=== PATIENT | female | born 1960 | race Caucasian/White ===

== ENCOUNTER 2018-09-16 18:30 | Inpatient (IN) ==
--- NOTE | 2018-09-16 20:03 | Emergency Department Note ---
Disposition Clinical Impression: Pleural effusion, not elsewhere classified, Pulmonary histoplasmosis Congestive heart failure Qualifiers: Heart failure type: unspecified Heart failure chronicity: chronic Qualified Code(s): I50.9 - Heart failure, unspecified COPD (chronic obstructive pulmonary disease) Qualifiers: COPD type: unspecified COPD Qualified Code(s): J44.9 - Chronic obstructive pulmonary disease, unspecified Disposition: Admitted As Inpatient Condition: Good General Adult HPI - General Chief complaint: ED Shortness of Breath/Dyspnea Stated complaint: Lung pain Time Seen by Provider: 09/16/18 18:51 Source: patient Limitations: no limitations Nursing Notes Reviewed: Yes Vital Signs Reviewed: Yes - History of Present Illness HPI Narrative: Patient's a 57-year-old male who presents the emergency department with complaints of a right-sided rib pain. She states that she had a right-sided upper lobectomy with Dr. Gonzalez approximately one month ago. She had a normal follow-up approximately 4 days ago but 1 day afterwards had a coughing fit and felt a "popping" sensation in her right ribs. Since that time she has had severe pain especially when she takes a deep breath and or has a cough. She denies any fevers or chills at home. Pain Scale: 10 - Related Data Home Medications Medication Instructions Recorded Confirmed Fluticasone/Vilanterol [Breo 2 each IH BID 08/01/18 08/16/18 Ellipta 100-25 Mcg INH] Previous Rx's Medication Instructions Recorded Albuterol Sulfate [Albuterol 2 puff IH Q4H PRN #1 inhaler 07/04/18 Inhaler] Cyclobenzaprine [Flexeril] 10 mg PO HS PRN #10 tablet 08/22/18 Allergies Allergy/AdvReac Type Severity Reaction Status Date / Time clarithromycin [From Biaxin] Allergy See Verified 08/16/18 14:40 Comments Penicillins Allergy Nausea,VOMI Verified 08/16/18 14:40 TING acetaminophen [From Percocet] AdvReac NAUSEA, Verified 08/16/18 14:40 VOMITING doxycycline AdvReac NAUSEA, Verified 08/16/18 14:40 VOMITING oxycodone [From Percocet] AdvReac NAUSEA, Verified 08/16/18 14:40 VOMITING propoxyphene AdvReac Nausea Verified 08/16/18 14:40 [From Darvocet-N] Sulfa (Sulfonamide AdvReac Nausea Verified 08/16/18 14:40 Antibiotics) tramadol [From Ultram] AdvReac Fever Verified 08/16/18 14:40 Review of Systems: In addition to that documented in the HPI above, the additional ROS was obtai angel: General: Denies fever. Denies chills. Denies weight loss. Denies behavioral change. Eyes: Denies visual changes. ENT: Denies nasal congestion. Denies sore throat. Denies hearing change. Cardio: Denies chest pain. Denies palpitations. Respiratory: ADMITS cough. ADMITS shortness of breath. Denies wheezing. GI: Denies nausea, vomiting, or diarrhea. Denies hematochezia or melena. Denies abdominal pain. : Denies dysuria, hematuria, or urinary retention MSK: Denies back pain. Denies joint swelling. Neuro: Denies slurred speech. Denies numbness or tingling. Denies focal w eakness. Denies headache. Denies loss of consciousness. Psych: Denies mood changes. All systems ED: reviewed and negative except as stated. Review of Systems: As Per HPI Past Medical History - Past Medical History Medical history: Reports: cancer, CHF, COPD, hypertension, peripheral artery disease, other Surgical history: Reports: cholecystectomy, MAX/BSO, other Psychiatric history: Reports: depression OPERATIONS EXECUTIVE history: Reports: no OPERATIONS EXECUTIVE history, non-contributory - Social History Smoking Status: Current every day smoker Smokeless Tobacco Status: No Alcohol use: Reports: none Drug use: Reports: none Physical Exam General: Conversant. No apparent distress. Follow commands. Appears stated age. Obese. Neck: No JVD. Trachea midline. Neck supple. Eyes: PERRL. No scleral icterus. HENT: Normocephalic and atraumatic. Moist mucus membranes. Cardiovascular: Regular rate and rhythm. Normal S1 and S2. No murmurs appreciated. Normal capillary refill. Extremities well perfused with 2+ distal pulses bilaterally. No edema. Pulmonary: Crackles in bilateral lower lobes. Not in respiratory distress. Speaks in full sentences. Abdomen: Soft, nondistended, and tontender. No bruits or masses. No guarding. Neuro: Alert and oriented x3. No slurred speech. No focal deficits noted. Skin: No rashes noted on visualized skin. Overlying the right posterior back, overlying the patient's lobectomy scar there is significant area of swelling with tenderness to even light touch. This appears to increase in size during respirations. Musculoskeletal: No bony abnormalities visualized. Moves all extremities. Psych: Normal mood. Pleasant. Makes appropriate eye contact. - General Limitations: no limitations General appearance: alert, in no apparent distress Course - Reevaluation(s) Reevaluation #1: CT image reviewed showing communication of pleural cavity with soft tissue. CT surgery paged. Time: 21:17 - Consultations Consultation #1: Spoke with Dr. Gonzalez, cardiothoracic surgeon who performed the patient's surgery who requests admission to the hospitalist and they will consult and see the patient in the morning. No requirement as far as antibiotics. Time: 21:22 Vital Signs Temperature 98.0 F 09/16/18 18:37 Pulse Rate 93 09/16/18 18:37 Respiratory Rate 16 09/16/18 18:37 Blood Pressure 117/89 09/16/18 18:37 O2 Sat by Pulse Oximetry 94 09/16/18 18:37 Temperature 98.0 F 09/16/18 18:37 Pulse Rate 93 09/16/18 18:37 Respiratory Rate 16 09/16/18 18:37 Blood Pressure 117/89 09/16/18 18:37 O2 Sat by Pulse Oximetry 94 09/16/18 18:37 Oxygen Delivery Oxygen Delivery Room Air Medical Decision Making - [facility] Narrative Medical decision making narrative: Patient's a 57-year-old female who presents with shortness breath and increased swelling in the posterior side of her right back after fall. The patient is approximately one month out from a right upper lobe lobectomy with Dr. Gonzalez. Given the patient's ongoing symptoms did obtain 2 view chest x-ray which revealed significant right-sided pleural effusion but given the significant swelling under the patient's incision site did obtain CT chest. This shows evidence of significant effusion which appears to extend from the right pleural cavity into the right subcutaneous area underlying her incision. Did discuss the case with Dr. Gonzalez who performed her surgery who recommends admission to hospitalist. She is afebrile and has no significant elevation in her white count or anemia and he has no recommendations in terms of antiobitics. He states he will consult onto the case and see the patient in the morning and likely will require drainage tube. Discussed case with on-call hospitalist Dr. Dempsey who agrees with plan for admission and accepts the patient to the inpatient service. Patient agrees with and understands course of treatment plan including plan for admission. All questions answered. - Medical Records Medical records reviewed: Yes I reviewed the patient's medical records. - Lab Data Result diagrams: 09/16/18 20:42 09/16/18 20:42 Lab Results 09/16/18 09/16/18 Range/Units 20:42 20:42 WBC 15.0 H (4.3-11.1) K/mcL RBC 4.24 (3.82-4.97) M/mcL Hgb 12.1 (11.5-15.4) g/dL Hct 38.2 (35.3-44.9) % MCV 90.1 (83.0-100.0) fL MCH 28.5 (28.0-33.3) pg MCHC 31.7 (31.6-35.5) g/dL RDW 13.9 (11.5-14.5) % Plt Count 362 (140-400) K/mcL MPV 9.6 (9.4-12.4) fL Immature Gran % 0.6 (0-4) % Seg Neutrophils % 50.7 % Lymphocytes % 35.5 % Monocytes % 7.5 % Eosinophils % 5.3 % Basophils % 0.4 % Neutrophils # 7.6 (1.6-8.9) K/mcL Lymphocytes # 5.3 H (0.6-4.6) K/mcL Monocytes # 1.1 (0.0-1.3) K/mcL Eosinophils # 0.8 H (0.0-0.6) K/mcL Basophils # 0.1 (0.0-0.2) K/mcL Sodium 138 (136-145) mEq/L Potassium 3.5 (3.5-5.1) mEq/L Chloride 105 (98-107) mEq/L Carbon Dioxide 29 (23-29) mEq/L BUN 9 (6-20) mg/dL Creatinine 0.75 (0.60-1.20) mg/dL Est GFR ( Amer) > 60 (> 60) Est GFR (Non-Af Amer) > 60 (> 60) BUN/Creatinine Ratio 12 (6-26) Glucose 96 (70-105) mg/dL Calculated Osmolality 285 (280-300) Calcium 9.1 (8.6-10.3) mg/dL - Radiology Data Radiology results reviewed: Yes I reviewed the patient's radiology results. Chest X-Ray 09/16/18 19:16 IMPRESSION: Right lung base opacity is nonspecific and may represent pleural fluid and atelectasis with underlying pneumonia not excluded. D/ / 09/16/2018 19:44:56 David Garza MD / walter Interpreting Provider: David Garza MD Chest CT 09/16/18 19:53 IMPRESSION: Large collection along the posterolateral aspect of the chest is nonspecific. On coronal imaging there is suggestion that this is contiguous with the pleural cavity. Moderate right pleural effusion. Right lung opacities may represent a combination of postsurgical change, atelectasis, with residual malignancy not excluded. Multiple tiny nodular opacities within the left upper lobe are nonspecific and may be infectious versus inflammatory. Malignancy is felt to be less likely but not excluded. D/ / 09/16/2018 20:37:38 David Garza MD / walter Interpreting Provider: David Garza MD - EKG Data EKG #1 EKG attestation: Yes I reviewed and interpreted this EKG. EKG shows normal: sinus rhythm Rate: normal Rhythm: NSR When compared to previous EKG there are: no significant changes (06/20/18) Interpretation: no acute changes Attestation Statement - Attestation Attestation: DR Roberson note: Pt seen in conjunction w/ Resident Dr Ledezma; Please see her charting for complete documentation. I agree with patient's Assessment and spent [id number] time with the patient and I agree with the patient's treatment and disposition. Patient with 3 days of right axillary rib pain at her incision site from her prior surgery with deep breath and movement. Patient is not hypoxic or tachypneic. Effusion with communication. Noted is patient had surgery at this site. She is stable on arrival and on admission. We discussed the case with her cardiovascular surgeon. Stable at time of admission. Imaging results including CT scan of been reviewed.
[2018-09-16 21:07] LABS: Basophils # 0.1 K/mcL (0.0-0.2); Basophils % 0.4 %; Eosinophils # 0.8 K/mcL (0.0-0.6); Eosinophils % 5.3 %; Hematocrit 38.2 % (35.3-44.9); Hemoglobin 12.1 g/dL (11.5-15.4); Immature Granulocytes % 0.6 % (0-4); Lymphocytes # 5.3 K/mcL (0.6-4.6); Lymphocytes % 35.5 %; Mean Corpuscular HGB Conc 31.7 g/dL (31.6-35.5); Mean Corpuscular Hemoglobin 28.5 pg (28.0-33.3); Mean Corpuscular Volume 90.1 fL (83.0-100.0); Mean Platelet Volume 9.6 fL (9.4-12.4); Monocytes # 1.1 K/mcL (0.0-1.3); Monocytes % 7.5 %; Neutrophils # 7.6 K/mcL (1.6-8.9); Platelet Count 362 K/mcL (140-400); Red Blood Count 4.24 M/mcL (3.82-4.97); Red Cell Distribution Width 13.9 % (11.5-14.5); Segmented Neutrophils % 50.7 %
[2018-09-16 21:26] LABS: BUN/Creatinine Ratio 12 (6-26); Blood Urea Nitrogen 9 mg/dL (6-20); Calcium 9.1 mg/dL (8.6-10.3); Carbon Dioxide 29 mEq/L (23-29); Chloride 105 mEq/L (98-107); Glucose 96 mg/dL (70-105); Osmolality,Calculated 285 (280-300); Potassium 3.5 mEq/L (3.5-5.1); Sodium 138 mEq/L (136-145); eGFR For Non-African Americans > 60 (> 60)
[2018-09-16] MEDS ORDERED: *HR* HYDROcodone/Acet 10/325 mg TABLET PO ONE (22:24)
[2018-09-16] MEDS ORDERED: Ondansetron ODT 4 MG TAB.RAPDIS SL ONE (22:38)
[2018-09-17] MEDS ORDERED: Ketorolac 15 MG/ML VIAL IVP PRN (03:43)
[2018-09-17] MEDS ORDERED: Naloxone 0.4 MG/ML INJ IVP PRN (03:43)
--- NOTE | 2018-09-17 04:15 | Internal Med History&Physical ---
Date of Encounter: 09/17/18 Time of Encounter: 04:15 Internal Medicine - H&P: HPI Chief complaint: Chest Pain/Cough History of present illness: Ms. Menjivar is a 57 year old female with a past medical history of COPD, hypertension, CHF, and pulmonary histoplasmosis status post lobectomy on 08/16/2018 who presents to the ED with complaints of right-sided rib pain. She states that she had a right-sided upper lobectomy with Dr. Gonzalez approximately one month ago. She had a normal follow-up approximately 4 days ago but 1 day afterwards had a coughing fit and felt a "popping" sensation in her right ribs. Since that time she has had severe pain especially when she takes a deep breath and or has a cough. She denies any fevers or chills at home. On arrival patient was afebrile, hemodynamically stable satting at 96% on room air. Labs are notable for a leukocytosis which appears to be chronic. A CT scan of the chest was performed which showed a large collection along the posterior lateral aspect of the chest. Case was discussed with Dr. Saeed who performed her surgery and will see the patient in the morning and likely will require drainage tube. Past Med Surg Social Fam HX - Past Medical History Medical history: cancer, CHF, COPD, hypertension, peripheral artery disease, other Additional medical history: cervical cancer Psychiatric history: depression - Past Surgical History Surgical History: cholecystectomy, MAX/BSO, other Additional surgical history: rhinoplasty. R knee replacement - Social History Smoking Status: Current every day smoker Smokeless Tobacco Status: No Alcohol use: none Drug use: none Internal Medicine - H&P: Meds Albuterol Sulfate [Albuterol Inhaler] 2 puff IH Q4H PRN #1 inhaler 07/04/18 [Rx] Fluticasone/Vilanterol [Breo Ellipta 100-25 Mcg INH] 2 each IH BID 08/01/18 [History] Cyclobenzaprine [Flexeril] 10 mg PO HS PRN #10 tablet 08/22/18 [Rx] Albuterol Inhaler IH TID 09/17/18 [History] Benadryl 10 mg HS 09/17/18 [History] PredniSONE 25 mg PO DAILY 09/17/18 [History] Tessalon 10 mg PO TID 09/17/18 [History] Allergy/AdvReac Type Severity Reaction Status Date / Time clarithromycin [From Biaxin] Allergy See Verified 08/16/18 14:40 Comments Penicillins Allergy Nausea,VOMI Verified 08/16/18 14:40 TING acetaminophen [From Percocet] AdvReac NAUSEA, Verified 08/16/18 14:40 VOMITING doxycycline AdvReac NAUSEA, Verified 08/16/18 14:40 VOMITING oxycodone [From Percocet] AdvReac NAUSEA, Verified 08/16/18 14:40 VOMITING propoxyphene AdvReac Nausea Verified 08/16/18 14:40 [From Darvocet-N] Sulfa (Sulfonamide AdvReac Nausea Verified 08/16/18 14:40 Antibiotics) tramadol [From Ultram] AdvReac Fever Verified 08/16/18 14:40 All Systems PM: A 10-system review of systems was performed and is negative for pertinent findings except as documented above in the HPI. - Constitutional Constitutional: no chills, no fever(s), no night sweats - EENT Eyes: no change in vision, no discharge, no pain, no photophobia Ears: no ear discharge, no ear pain, no tinnitus Nose, mouth and throat: no dysphagia, no nasal discharge, no neck pain, no sore throat - Cardiovascular Cardiovascular ROS IM: no chest pain, no diaphoresis, no dyspnea, no lightheadedness, no palpitations, no syncope - Respiratory Respiratory: no cough, no dyspnea, no wheezing, no excessive phlegm production - Gastrointestinal Gastrointestinal: no abdominal pain, no diarrhea, no hematemesis, no hematochezia, no melena, no nausea, no vomiting - Genitourinary Genitourinary: no change in urinary stream, no dysuria, no flank pain, no hematuria - Musculoskeletal Musculoskeletal ROS IM: no numbness, no tingling - Integumentary Integumentary IM: no rash, no unusual bruising - Neurological Neurological ROS: no confusion, no convulsions, no focal weakness, no numbness, no tingling, no tremor(s) - Hematologic/Lymphatic Hematologic/Lymphatic: no easy bruising - Constitutional Vitals: Temp Pulse Resp BP Pulse Ox 98.1 F 82 16 108/61 91 09/17/18 01:16 09/17/18 01:16 09/17/18 01:16 09/17/18 01:16 09/17/18 01:16 Exam: General: Alert and oriented x 3 Skin:Normal color, no rash, no lesions. HEENT:EOM, pupils equal, round and reactive. Cardiovascular:Normal S1 & S2, no rubs, murmurs or gallops. No JVD. Pulse regular. Lungs: Diffuse expiratory wheezing noted on lung examination. Abdomen:Soft, non-tender, no rigidity. Extremities:No deformity, no edema or tenderness, no joint swelling or clubbing. Neurological:Normal cognition and motor skills. Pulses:Carotid and radial pulses normal +2. Rest of the physical exam is non contributory Internal Med - H&P Results - Labs CBC & Chem 7: 09/17/18 05:24 09/17/18 05:24 Labs: Short CBC 09/16/18 Range/Units 20:42 WBC 15.0 H (4.3-11.1) K/mcL Hgb 12.1 (11.5-15.4) g/dL Hct 38.2 (35.3-44.9) % Plt Count 362 (140-400) K/mcL Neutrophils # 7.6 (1.6-8.9) K/mcL BMP 09/16/18 20:42 Sodium 138 Potassium 3.5 Chloride 105 Carbon Dioxide 29 BUN 9 Creatinine 0.75 Glucose 96 Calcium 9.1 - Impressions ITS Impressions Chest X-Ray 09/16/18 19:16 IMPRESSION: Right lung base opacity is nonspecific and may represent pleural fluid and atelectasis with underlying pneumonia not excluded. D/ / 09/16/2018 19:44:56 David Garza MD / walter Interpreting Provider: David Garza MD Chest CT 09/16/18 19:53 IMPRESSION: Large collection along the posterolateral aspect of the chest is nonspecific. On coronal imaging there is suggestion that this is contiguous with the pleural cavity. Moderate right pleural effusion. Right lung opacities may represent a combination of postsurgical change, atelectasis, with residual malignancy not excluded. Multiple tiny nodular opacities within the left upper lobe are nonspecific and may be infectious versus inflammatory. Malignancy is felt to be less likely but not excluded. D/ / 09/16/2018 20:37:38 David Garza MD / walter Interpreting Provider: David Garza MD - Assessment and Plan (1) Pleural effusion, not elsewhere classified Current Visit: Yes Status: Acute Assessment and plan: CT scan of the chest shows a large collection along the posterior lateral aspect no chest along with moderate right pleural effusion occurring in the setting of previous wedge resection in July. Low suspicion for infectious etiology. Patient does not have fever and her white count appears to be chronic. Case was discussed with Dr. Saeed for plans of placement of a chest tube drain -We will keep patient NPO -Cardiothoracic on board. (2) Congestive heart failure Current Visit: Yes Status: Acute Assessment and plan: No evidence of an acute exacerbation. Continue home medication management. Qualifiers: Heart failure type: unspecified Heart failure chronicity: chronic Qualified Code(s): I50.9 - Heart failure, unspecified (3) COPD (chronic obstructive pulmonary disease) Current Visit: Yes Status: Chronic Assessment and plan: Patient has mild expiratory wheezing. She states she always wheezes. Patient otherwise saturating in the mid 90s on room air. Low Suspicion for an acute exacerbation. -Continue home inhalers - Qualifiers: COPD type: unspecified COPD Qualified Code(s): J44.9 - Chronic obstructive pulmonary disease, unspecified (4) DVT prophylaxis Current Visit: Yes Status: Acute Assessment and plan: Pneumatic compression devices - Time Spent With Patient Total time spent is greater than 50% in coordination of care (as documented) at patient's floor/unit and/or counseling patient:
[2018-09-17] MEDS: 0.9 % Sodium Chloride 1,000 ML IVC SCH ×2 (04:20→17:42)
[2018-09-17 05:43] LABS: Basophils # 0.1 K/mcL (0.0-0.2); Basophils % 0.5 %; Eosinophils # 0.8 K/mcL (0.0-0.6); Eosinophils % 6.2 %; Hematocrit 39.2 % (35.3-44.9); Hemoglobin 12.2 g/dL (11.5-15.4); Immature Granulocytes % 0.5 % (0-4); Lymphocytes # 5.3 K/mcL (0.6-4.6); Lymphocytes % 39.2 %; Mean Corpuscular HGB Conc 31.1 g/dL (31.6-35.5); Mean Corpuscular Volume 90.1 fL (83.0-100.0); Mean Platelet Volume 9.5 fL (9.4-12.4); Monocytes # 1.2 K/mcL (0.0-1.3); Monocytes % 8.8 %; Platelet Count 344 K/mcL (140-400); Red Blood Count 4.35 M/mcL (3.82-4.97); Red Cell Distribution Width 13.9 % (11.5-14.5); Segmented Neutrophils % 44.8 %
[2018-09-17 05:50] LABS: INR 1.2; Prothrombin Time 13.6 Seconds (9.4-12.1)
[2018-09-17 05:53] LABS: Activated Partial Thrombo Time 31.4 Seconds (26.0-36.0)
[2018-09-17 06:04] LABS: Alanine Aminotransferase 17 Units/L (7-52); Albumin 3.6 g/dL (3.5-5.7); Albumin/Globulin Ratio 1.2 (1.1-2.2); Alkaline Phosphatase 98 Units/L (34-104); Aspartate Amino Transferase 15 Units/L (13-39); BUN/Creatinine Ratio 13 (6-26); Bilirubin,Total 0.5 mg/dL (0.3-1.0); Blood Urea Nitrogen 9 mg/dL (6-20); Carbon Dioxide 28 mEq/L (23-29); Chloride 108 mEq/L (98-107); Globulin 3.1 g/dL (2.4-3.5); Glucose 96 mg/dL (70-105); Osmolality,Calculated 283 (280-300); Potassium 3.6 mEq/L (3.5-5.1); Sodium 137 mEq/L (136-145); Total Protein 6.7 g/dL (6.4-8.9); eGFR For Non-African Americans > 60 (> 60)
[2018-09-17] MEDS: predniSONE 10 MG TABLET PO SCH (08:40)
[2018-09-17] MEDS ORDERED: TESSALON PO SCH (09:00)
[2018-09-17] MEDS ORDERED: Ipratropium/Albuterol Neb 3 ML IH PRN (10:08)
--- NOTE | 2018-09-17 10:29 | Internal Med Progress Note ---
<Roel Velez - Last Filed: 09/17/18 14:41> Hospitalist Progress Note - Encounter Date of Encounter: 09/17/18 Time of Encounter: 08:30 - Subjective Interval History: Patient 57 yo female presented with right rib pain. 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 Patient Denies fevers, chills, and weight loss. She denies chest pain, palpitations, or extremity edema. She denies SOB, wheezing, but admits to a cough that produces green/yellow sputum. Patient denies abdominal distention, diarrhea, hematochezia, but admits to constipation. She also denies dysuria, increase in frequency, and gross hematuria. - Exam Vitals: Temp Pulse Resp BP Pulse Ox 98.4 F 85 20 100/58 90 09/17/18 06:55 09/17/18 06:55 09/17/18 06:55 09/17/18 06:55 09/17/18 06:55 Exam: GEN: WDWN, Cardiac: RRR, no murmur, no rub Lungs: + diffuse inspiratory wheezing, no rhonci, no rales GI: BS X4 MSK: Right 6 rib tender, abnormal wall motion. I & O 09/16/18 18:30 thru 09/17/18 12:16 Intake Total 0 Output Total 0 Balance 0 Weight 117 kg Intake: Oral 0 Output: Urine 0 Other: Meal npo Percent of Meal Consumed 0% Blood Glucose* 110 Chest x-ray: Righ lung base opacity, Plural fluid, possible atalectasis, possible underlying pneumonia Chest CT: Right pleural effusion, Right sided atelectasis, Left nodular opacities maybe infectious vs inflammatory, possible Malignacy but unlikely - Assessment and Plan (1) Rib pain on right side Current Visit: Yes Status: Acute Assessment and Plan: Patient complains of rib pain during forced exhalation and when coughing Start Tessalon 100 mg PO TID PRN for cough suppression, Start [place] 5-325 mg 1 tab PO Q6HR PRN Likely rib sublixation due to chronic cough secondary to pleural effusion, COPD. Patient had right upper lobectomy 1 month ago (2) Pleural effusion, not elsewhere classified Current Visit: Yes Status: Acute Assessment and Plan: Chest CT: Right pleural effusion, Large right side volume collection. Infectious etiology is not likely. IR to perform right thoracentesis. Continue to monitor for signs of infectious etiology (3) COPD (chronic obstructive pulmonary disease) Current Visit: Yes Status: Chronic Assessment and Plan: Patient has diffuse inspiratory wheezing, diminished breath sounds. O2 staturation at 90% room air. Low suspicion for exacerbation Continue home inhalers, start tessalon 100 mg PO TID PRN (4) Congestive heart failure Current Visit: Yes Status: Acute Assessment and Plan: No evidence of acute exacerbation Continue home medications DC tordol (5) HTN (hypertension) Current Visit: No Status: Chronic Assessment and Plan: Patient has a diagnosis of HTN, Does not currently take medication for HTN Vitals are stable - Time Spent with Patient Total time spent is greater than 50% in coordination of care (as documented) at patient's floor/unit and/or counseling patient: Internal Medicine: Result - Labs CBC & Chem 7: 09/17/18 05:24 09/17/18 05:24 Labs: Short CBC 09/16/18 09/17/18 Range/Units 20:42 05:24 WBC 15.0 H 13.5 H (4.3-11.1) K/mcL Hgb 12.1 12.2 (11.5-15.4) g/dL Hct 38.2 39.2 (35.3-44.9) % Plt Count 362 344 (140-400) K/mcL Neutrophils # 7.6 6.0 (1.6-8.9) K/mcL BMP 09/16/18 09/17/18 20:42 05:24 Sodium 138 137 Potassium 3.5 3.6 Chloride 105 108 H Carbon Dioxide 29 28 BUN 9 9 Creatinine 0.75 0.69 Glucose 96 96 Calcium 9.1 9.0 Liver Function 09/17/18 Range/Units 05:24 Total Bilirubin 0.5 (0.3-1.0) mg/dL AST 15 (13-39) Units/L ALT 17 (7-52) Units/L Alkaline Phosphatase 98 (34-104) Units/L Albumin 3.6 (3.5-5.7) g/dL - ABG Interpretation ABG results: PT/INR, D-dimer PT 13.6 Seconds (9.4-12.1) H 09/17/18 05:24 - Impressions Impressions Chest X-Ray 09/16/18 19:16 IMPRESSION: Right lung base opacity is nonspecific and may represent pleural fluid and atelectasis with underlying pneumonia not excluded. D/ / 09/16/2018 19:44:56 David Garza MD / walter Interpreting Provider: David Garza MD Chest CT 09/16/18 19:53 IMPRESSION: Large collection along the posterolateral aspect of the chest is nonspecific. On coronal imaging there is suggestion that this is contiguous with the pleural cavity. Moderate right pleural effusion. Right lung opacities may represent a combination of postsurgical change, atelectasis, with residual malignancy not excluded. Multiple tiny nodular opacities within the left upper lobe are nonspecific and may be infectious versus inflammatory. Malignancy is felt to be less likely but not excluded. D/ / 09/16/2018 20:37:38 David Garza MD / walter Interpreting Provider: David Garza MD Consult Discharge Plan - Plan Referrals: Paco Lopez DO [Primary Care Provider] - <Fernando Hoffmann - Last Filed: 09/17/18 19:07> Hospitalist Progress Note - Encounter Date of Encounter: 09/17/18 - Exam Vitals: Temp Pulse Resp BP Pulse Ox 98.6 F 89 12 103/56 95 09/17/18 12:16 09/17/18 13:46 09/17/18 13:46 09/17/18 13:46 09/17/18 13:46 - Assessment and Plan (1) COPD (chronic obstructive pulmonary disease) Current Visit: Yes Status: Chronic (2) Pleural effusion, not elsewhere classified Current Visit: Yes Status: Acute (3) Congestive heart failure Current Visit: Yes Status: Acute (4) DVT prophylaxis Current Visit: Yes Status: Acute - Time Spent with Patient Total time spent is greater than 50% in coordination of care (as documented) at patient's floor/unit and/or counseling patient: Internal Medicine: Result - Labs CBC & Chem 7: 09/17/18 05:24 09/17/18 05:24 Labs: Short CBC 09/16/18 09/17/18 Range/Units 20:42 05:24 WBC 15.0 H 13.5 H (4.3-11.1) K/mcL Hgb 12.1 12.2 (11.5-15.4) g/dL Hct 38.2 39.2 (35.3-44.9) % Plt Count 362 344 (140-400) K/mcL Neutrophils # 7.6 6.0 (1.6-8.9) K/mcL BMP 09/16/18 09/17/18 20:42 05:24 Sodium 138 137 Potassium 3.5 3.6 Chloride 105 108 H Carbon Dioxide 29 28 BUN 9 9 Creatinine 0.75 0.69 Glucose 96 96 Calcium 9.1 9.0 Liver Function 09/17/18 Range/Units 05:24 Total Bilirubin 0.5 (0.3-1.0) mg/dL AST 15 (13-39) Units/L ALT 17 (7-52) Units/L Alkaline Phosphatase 98 (34-104) Units/L Albumin 3.6 (3.5-5.7) g/dL - ABG Interpretation ABG results: PT/INR, D-dimer PT 13.6 Seconds (9.4-12.1) H 09/17/18 05:24 - Impressions Impressions Chest X-Ray 09/16/18 19:16 IMPRESSION: Right lung base opacity is nonspecific and may represent pleural fluid and atelectasis with underlying pneumonia not excluded. D/ / 09/16/2018 19:44:56 David Garza MD / walter Interpreting Provider: David Garza MD Chest CT 09/16/18 19:53 IMPRESSION: Large collection along the posterolateral aspect of the chest is nonspecific. On coronal imaging there is suggestion that this is contiguous with the pleural cavity. Moderate right pleural effusion. Right lung opacities may represent a combination of postsurgical change, atelectasis, with residual malignancy not excluded. Multiple tiny nodular opacities within the left upper lobe are nonspecific and may be infectious versus inflammatory. Malignancy is felt to be less likely but not excluded. D/ / 09/16/2018 20:37:38 David Garza MD / walter Interpreting Provider: David Garza MD Thoracentesis 09/17/18 00:00 IMPRESSION: 1. CT guided right chest tube placement as discussed above. D/ / Jaron Leon MD / Jaron Leon MD Interpreting Provider: Jaron Leon MD - Attending Attestation I examined this patient and my medical decision-making was reviewed with the Medical Student. I agree with the documented findings, disposition and treatment plan as described except to the extent set forth below. Patient having persisting right sided pain. She denies fevers/chills, SOB. On physical exam she does have significant wheezing. She refuses steroid therapy. She refuses some medications this morning. VS: reviewed, labs: reviewed. Patient will have CT surgery to evaluate patient. Continue supportive care. <Roel Velez - Last Filed: 09/17/18 14:41> (3) COPD (chronic obstructive pulmonary disease) Qualifiers: COPD type: unspecified COPD Qualified Code(s): J44.9 - Chronic obstructive pulmonary disease, unspecified (4) Congestive heart failure Qualifiers: Heart failure type: unspecified Heart failure chronicity: chronic Qualified Code(s): I50.9 - Heart failure, unspecified <Fernando Hoffmann - Last Filed: 09/17/18 19:07> (1) COPD (chronic obstructive pulmonary disease) Qualifiers: COPD type: unspecified COPD Qualified Code(s): J44.9 - Chronic obstructive pulmonary disease, unspecified (3) Congestive heart failure Qualifiers: Heart failure type: unspecified Heart failure chronicity: chronic Qualified Code(s): I50.9 - Heart failure, unspecified
[2018-09-17] MEDS ORDERED: Ondansetron 4 MG/2 ML VIAL IVP PRN (11:37)
[2018-09-17] MEDS: *HR* HYDROcodone/Acet 5/325 mg TABLET PO PRN ×3 (11:44→18:13)
[2018-09-17] MEDS ORDERED: *HR* Midazolam HCl 2 MG/2 ML VIAL IVP ONE (12:50)
[2018-09-17] MEDS ORDERED: *HR* FentaNYL (PF) 100 MCG/2 ML VIAL IVP ONE (12:51)
--- NOTE | 2018-09-17 13:53 | Pre-Sedation Evaluation ---
Pre-sedation evaluation - Pre-sedation checklist Date of procedure: 09/17/18 Procedure: Right chest tube placement Recent Vitals: Last Vital Signs Temp 98.6 F 09/17/18 12:16 Pulse 89 09/17/18 13:46 Resp 12 09/17/18 13:46 BP 103/56 09/17/18 13:46 Pulse Ox 95 09/17/18 13:46 Dietary Status: NPO after Midnight ASA Classification *see protocol: CLASS III-Severe systemic disease Plan of Care: Pt appropriate candidate for procedure/moderate/conscious sedation, Risks/benefits of procedure/sedation discussed w/ patient/family
--- NOTE | 2018-09-17 13:54 | IR Procedure Note ---
Date of procedure: 09/17/18 Consent Obtained: Written consent Timeout: Correct patient and procedure verified, Correct site verified, Time out performed Local anesthetic: Lidocaine 1% Indications: Right pleural effusion Procedure Performed: Right chest tube placement Was there an help desk assistant present: No Results/Findings: CT guided 10F right chest tube placement Estimated blood loss (cc): 0 Complications: None; Tolerated procedure well Post Procedure Treatment Plan: Monitor on floor Specimen: To path
[2018-09-17] MEDS: Benzonatate 100 MG CAPSULE PO PRN (18:12)
[2018-09-17] MEDS: Ondansetron 4 MG/2 ML VIAL IVP PRN (18:14)
--- NOTE | 2018-09-18 06:05 | Event Note ---
Date of Encounter: 09/18/18 Time of Encounter: 04:46 Alerted by pts. nurse ZARINA Ngo that the pt. was admitted for pleural effusion and had chest tube placed by IR to right back. Pt. was complaining of 10/10 pain stating that her right chest did not feel right. Nurse reports diminished breath sounds. Stat 1V CXR ordered which showed decreased volume right pleural effusion after percutaneous pleural pigtail catheter placement. No pneumothorax/hydropneumothorax. Nurse instructed to continue monitoring pt. closely and notify me immediately of any adverse changes.
[2018-09-18] MEDS: *HR* HYDROcodone/Acet 5/325 mg TABLET PO PRN (08:37)
[2018-09-18] MEDS: predniSONE 10 MG TABLET PO SCH (08:38)
[2018-09-18] MEDS: Ondansetron 4 MG/2 ML VIAL IVP PRN ×2 (08:56→21:06)
--- NOTE | 2018-09-18 10:20 | Internal Med Progress Note ---
<AgustinRoel - Last Filed: 09/18/18 15:33> Hospitalist Progress Note - Encounter Date of Encounter: 09/18/18 Time of Encounter: 08:20 - Subjective Interval History: Patient, 57 yo female presented with right rib pain, SOB, cough, and dyspnea. Patient had a right upper lobectomy 1 month ago. Imaging showed a collection of pleural fluid. Yesterday the patient had a chest tube placed for fluid drainage and analysis. Patient denied any fever or chills, she denied changes in vision and vertigo but admitted to a "migraine" headache that she had yesterday. Patient states she has the urge to cough but is able to suppress it. When she does cough it produces a green sputum. She admits to wheezing and pleuritic pain. She admits to palpitation, orthopnea, but denies edema, claudication, or chest pain. She states she has nausea but denies vomiting, constipation, or rectal bleeding. She states that she has pain when urinating but denies hematuria, or an increase in frequency/urgency. Patient admits to back pain and swelling in her back. The nurse was concerned for oral candidiasis. - Exam Vitals: Temp Pulse Resp BP Pulse Ox 98.4 F 83 18 122/79 91 09/18/18 06:50 09/18/18 06:50 09/18/18 06:50 09/18/18 06:50 09/18/18 06:50 Exam: GEN: Well appearing, alert, interactive CV: RRR, normal s1/s2, no murmurs Resp: CTA b/l, Midline wheezing, normal respiratory effort Wound: clean, no crepitus, draining appropriately. Oral: white-yellow lesion along the tongue, was able to be scraped away I & O 09/16/18 18:30 thru 09/18/18 08:39 Intake Total 2240 Output Total 1350 Balance 890 Weight 117 kg Intake: IV Fluids 2000 0.9 % Sodium Chloride 1,000 ML 2000 @ 75 mls/hr IVC .[id number] ALEISHA Rx #:[id number] Oral 240 Output: Urine 900 Chest Tube Drainage 450 Right Lateral Chest #1 450 Other: Meal Dinner Percent of Meal Consumed 0% Blood Glucose* 110 Chest X-ray: Decrease in right pleural fluid volume. Left lung was clear. No pneumonthorax, no hydropneumothorax - Assessment and Plan (1) Rib pain on right side Current Visit: Yes Status: Acute Assessment and Plan: Patient complains of rib pain during forced exhalation and when coughing. Continue Tessalon 100 mg PO TID PRN for cough suppression, DC [place]. Start Percocet 5-325 mg 1 tab PO Q6HR PRN Likely rib sublixation due to chronic cough secondary to pleural effusion, COPD. Patient had right upper lobectomy 1 month ago (2) Pleural effusion, not elsewhere classified Current Visit: Yes Status: Acute Assessment and Plan: Chest x-ray post chest tube: Decrease in right pleural fluid volume. Left lung was clear. No pneumonthorax, no hydropneumothorax Chest tube collected 450 ml of pleural fluid. Pleural fluid analysis preliminary: shows an increase in WBC, culture is pending. Continue to monitor for signs of infectious etiology (3) COPD (chronic obstructive pulmonary disease) Current Visit: Yes Status: Chronic Assessment and Plan: Patient has midline inspiratory wheezing, breath sounds are improving. O2 staturation at 91% room air. Low suspicion for exacerbation Continue home inhalers, start tessalon 100 mg PO TID PRN (4) Congestive heart failure Current Visit: Yes Status: Acute Assessment and Plan: No evidence of acute exacerbation Continue home medications Promote lifestyle modifications. (5) HTN (hypertension) Current Visit: No Status: Chronic Assessment and Plan: Patient has a diagnosis of HTN, Does not currently take medication for HTN Vitals are stable (6) Thrush, oral Current Visit: Yes Status: Acute Assessment and Plan: Physical Exam: white-yellow lesion along the top of tongue, easily scraped away. Start oral nystatin 5 mg PO QID Oral canadiasis likely secondary to inhaler use. - Time Spent with Patient Total time spent is greater than 50% in coordination of care (as documented) at patient's floor/unit and/or counseling patient: Internal Medicine: Result - Labs CBC & Chem 7: 09/17/18 05:24 09/17/18 05:24 - ABG Interpretation ABG results: PT/INR, D-dimer PT 13.6 Seconds (9.4-12.1) H 09/17/18 05:24 - Impressions Impressions Thoracentesis 09/17/18 00:00 IMPRESSION: 1. CT guided right chest tube placement as discussed above. D/ / Jaron Leon MD / Jaron Leon MD Interpreting Provider: Jaron Leon MD Chest X-Ray 09/18/18 04:47 IMPRESSION: Decreased volume right pleural effusion after percutaneous pleural pigtail catheter placement. No pneumothorax/hydropneumothorax. D/ / Vinod Rucker / Vinod Rucker Interpreting Provider: Vinod Rucker Consult Discharge Plan - Plan Referrals: Paco Lopez DO [Primary Care Provider] - <Fernando Hoffmann - Last Filed: 09/18/18 19:22> Hospitalist Progress Note - Encounter Date of Encounter: 09/18/18 - Exam Vitals: Temp Pulse Resp BP Pulse Ox 98.2 F 80 15 137/69 92 09/18/18 18:59 09/18/18 18:59 09/18/18 18:59 09/18/18 18:59 09/18/18 18:59 - Assessment and Plan (1) COPD (chronic obstructive pulmonary disease) Current Visit: Yes Status: Chronic (2) Pleural effusion, not elsewhere classified Current Visit: Yes Status: Acute (3) Congestive heart failure Current Visit: Yes Status: Acute (4) DVT prophylaxis Current Visit: Yes Status: Acute - Time Spent with Patient Total time spent is greater than 50% in coordination of care (as documented) at patient's floor/unit and/or counseling patient: Internal Medicine: Result - Labs CBC & Chem 7: 09/17/18 05:24 09/17/18 05:24 - ABG Interpretation ABG results: PT/INR, D-dimer PT 13.6 Seconds (9.4-12.1) H 09/17/18 05:24 - Impressions Impressions Chest X-Ray 09/18/18 04:47 IMPRESSION: Decreased volume right pleural effusion after percutaneous pleural pigtail catheter placement. No pneumothorax/hydropneumothorax. D/ / Vinod Rucker / Vinod Rucker Interpreting Provider: Vinod Rucker - Attending Attestation I examined this patient and my medical decision-making was reviewed with the Medical Student. I agree with the documented findings, disposition and treatment plan as described except to the extent set forth below. No acute events. Thorax pain controlled. VS: reviewed, stable. On physical exam, patient in no acute distress, pulm auscultation; less wheezing than yesterday, diminished breath sounds at bases. Labs: reviewed. for pleural effusion; chest tube management per Cardiothoracic Surgery. <Roel Velez - Last Filed: 09/18/18 15:33> (3) COPD (chronic obstructive pulmonary disease) Qualifiers: COPD type: unspecified COPD Qualified Code(s): J44.9 - Chronic obstructive p ulmonary disease, unspecified (4) Congestive heart failure Qualifiers: Heart failure type: unspecified Heart failure chronicity: chronic Qualified Code(s): I50.9 - Heart failure, unspecified <Fernando Hoffmann - Last Filed: 09/18/18 19:22> (1) COPD (chronic obstructive pulmonary disease) Qualifiers: COPD type: unspecified COPD Qualified Code(s): J44.9 - Chronic obstructive pulmonary disease, unspecified (3) Congestive heart failure Qualifiers: Heart failure type: unspecified Heart failure chronicity: chronic Qualified Code(s): I50.9 - Heart failure, unspecified
--- NOTE | 2018-09-18 12:28 | Cardiothoracic Progress Note ---
Date of Encounter: 09/18/18 Time of Encounter: 12:25 - Assessment and plan (1) Hemothorax on right Current Visit: Yes Status: Acute The assessment and plan as outlined above was discussed with the patient and/or family members who expressed understanding and agreement. All questions were answered. current chest xray good. continue chest tube to suction. patient was down in radiology yesterday when i tried to visit. - Subjective Interval history: doing better Vital Signs, Last 4 Hours Temp Pulse Resp BP Pulse Ox 09/18/18 12:07 98.3 F 74 20 115/66 91 Oxgyen Flow Rate Oxygen Flow Rate (LPM) 2 Clinical Data, last 8 Hours Output, Chest Tube Drainage 10 Amount [Right Lateral Chest #1 ] Output, Chest Tube Drainage 100 Amount [Right Lateral Chest #1 ] Output, Urine Amount 600 Output, Urine Amount 500 Weight 09/16/18 09/17/18 09/18/18 23:59 23:59 23:59 Weight 118.478 kg 117 kg - Physical Examination General: Conversant, No Apparent Distress HEENT: Atraumatic, Normocephaly Cardiac: Reg Rate and Rhythm, Normal S1 and S2 Incision: No signs of infection, Dry/intact dressing Lungs: Other (wheezing. ) Neuro: Alert and responsive, Cranial nerves intact - Labs 09/17/18 05:24 09/17/18 05:24 - Imaging Chest Xray: image reviewed Consult Discharge Plan - Plan Referrals: Paco Lopez DO [Primary Care Provider] -
[2018-09-18] MEDS: *HR* OxyCODONE/APAP 5/325 TABLET PO PRN ×2 (12:33→21:00)
[2018-09-18] MEDS: Gabapentin 300 MG CAPSULE PO SCH (16:17)
[2018-09-18] MEDS: Nystatin SUSP 5 ML UD.LIQ PO SCH ×2 (16:17→20:59)
[2018-09-18] MEDS: Budesonide/Formoterol 80/4.5 MDI IH SCH (21:13)
--- NOTE | 2018-09-18 21:53 | Electrocardiograph Report ---
[address] [place] [address] Test Date: 2018-09-16 Pat Name: Monika Menjivar Department: EXAM[facility]2 Room: 3A47 Gender: F Non Emergency Services Ambulance Driver: : [id number] Requested By: Denise Ledezma Order Number: [id number] Reading MD: Candice Guerin Measurements Intervals Ralph Rate: 87 P: 47 CA: 131 QRS: 81 QRSD: 159 T: 4 QT: 399 QTc: 480 Interpretive Statements Sinus rhythm Right bundle branch block Electronically Signed On 09-18-2018 21:52:09 EST by Candice Guerin
[2018-09-19 05:40] LABS: Basophils % 0.3 %; Eosinophils # 0.4 K/mcL (0.0-0.6); Eosinophils % 2.6 %; Hematocrit 36.5 % (35.3-44.9); Hemoglobin 11.4 g/dL (11.5-15.4); Immature Granulocytes % 0.5 % (0-4); Lymphocytes # 4.7 K/mcL (0.6-4.6); Lymphocytes % 35.1 %; Mean Corpuscular HGB Conc 31.2 g/dL (31.6-35.5); Mean Corpuscular Hemoglobin 28.1 pg (28.0-33.3); Mean Corpuscular Volume 89.9 fL (83.0-100.0); Mean Platelet Volume 9.8 fL (9.4-12.4); Monocytes # 1.1 K/mcL (0.0-1.3); Monocytes % 8.4 %; Neutrophils # 7.1 K/mcL (1.6-8.9); Platelet Count 339 K/mcL (140-400); Red Blood Count 4.06 M/mcL (3.82-4.97); Red Cell Distribution Width 13.6 % (11.5-14.5); Segmented Neutrophils % 53.1 %
[2018-09-19] MEDS: Ondansetron 4 MG/2 ML VIAL IVP PRN ×3 (05:49→22:08)
[2018-09-19] MEDS: *HR* OxyCODONE/APAP 5/325 TABLET PO PRN ×3 (05:50→22:08)
--- NOTE | 2018-09-19 08:18 | Internal Med Progress Note ---
<AgustinRoel - Last Filed: 09/19/18 09:07> Hospitalist Progress Note - Encounter Date of Encounter: 09/19/18 Time of Encounter: 08:40 - Subjective Interval History: Patient denies any acute changes over night. This morning she reports rib pain on the right being the same, but a decrease in pain associated with her chest tube from a 10/10 to a 6/10. Patient denies any significant changes in her oral candidiasis. She denied fever, visual changes, or headaches. She denied palpitations, edema, or chest pain. Patient admitted to cough, wheezing but denied SOB. She denied constipation, diarrhea, nausea or vomitting. Patient d enied dysuria and denied increase in frequency or urgency. Patient denied any odenophagia, xerostomia. - Exam Vitals: Temp Pulse Resp BP Pulse Ox 98.0 F 62 15 107/63 93 09/19/18 02:54 09/19/18 02:54 09/19/18 02:54 09/19/18 02:54 09/19/18 02:54 Exam: GEN: AA&O X3, NAD Cardiac: RRR, Normal s1/s2, no murmur, no rubs, no LE edema, peripheral pulses intact Lungs: CTA b/l, no wheezes, no rhales GI: BSx4, no pain on palpation MSK: Right anterior thoracic wall tender to touch. no overlying erythema, Wound: Would dressing is clean and dry, no drainage to note. I & O 09/16/18 18:30 thru 09/19/18 09:04 Intake Total 3440 Output Total 4250 Balance -810 Weight 116.7 kg Intake: IV Fluids 2000 0.9 % Sodium Chloride 1,000 ML 2000 @ 75 mls/hr IVC .[id number] ALEISHA Rx #:[id number] Oral 1440 Output: Urine 3800 Chest Tube Drainage 450 Right Lateral Chest #1 450 Other: Meal Dinner Percent of Meal Consumed 100% Blood Glucose* 110 Chest x-ray: decrease volume on right side, no signs of pneumothorax/hydropneum onthorax - Assessment and Plan (1) Rib pain on right side Current Visit: Yes Status: Acute Assessment and Plan: Patient complains of rib pain during forced exhalation and when coughing. Continue Tessalon 100 mg PO TID PRN for cough suppression, Continue Percocet 5- 325 mg 1 tab PO Q6HR PRN Likely rib sublixation due to chronic cough secondary to pleural effusion, COPD. Patient had right upper lobectomy 1 month ago (2) Pleural effusion, not elsewhere classified Current Visit: Yes Status: Acute Assessment and Plan: Chest x-ray post chest tube: Decrease in right pleural fluid volume. Left lung was clear. No pneumonthorax, no hydropneumothorax Chest tube collected 450 ml of pleural fluid. Consider chest tube removal. Less than 200 ml output in 24 hrs. Pleural fluid analysis preliminary: shows an increase in WBC, culture showed no growth at 24 hrs. Continue to monitor for signs of infectious etiology (3) COPD (chronic obstructive pulmonary disease) Current Visit: Yes Status: Chronic Assessment and Plan: Patient has midline inspiratory wheezing, breath sounds are improving. O2 staturation at 93% room air. Low suspicion for exacerbation Continue home inhalers, continue tessalon 100 mg PO TID PRN (4) Congestive heart failure Current Visit: Yes Status: Acute Assessment and Plan: No evidence of acute exacerbation Continue home medications Promote lifestyle modifications. (5) HTN (hypertension) Current Visit: No Status: Chronic Assessment and Plan: Patient has a diagnosis of HTN, Does not currently take medication for HTN Vitals are stable (6) Thrush, oral Current Visit: Yes Status: Acute Assessment and Plan: Physical Exam: white-yellow lesion along the top of tongue, easily scraped away. Patient is asymptomatic. Start oral nystatin 5 mg PO QID Oral canadiasis likely secondary to inhaler use. - Time Spent with Patient Total time spent is greater than 50% in coordination of care (as documented) at patient's floor/unit and/or counseling patient: less than 15 minutes Internal Medicine: Result - Labs CBC & Chem 7: 09/19/18 04:56 09/17/18 05:24 Labs: Short CBC 09/19/18 Range/Units 04:56 WBC 13.3 H (4.3-11.1) K/mcL Hgb 11.4 L (11.5-15.4) g/dL Hct 36.5 (35.3-44.9) % Plt Count 339 (140-400) K/mcL Neutrophils # 7.1 (1.6-8.9) K/mcL - ABG Interpretation ABG results: PT/INR, D-dimer PT 13.6 Seconds (9.4-12.1) H 09/17/18 05:24 Consult Discharge Plan - Plan Referrals: Paco Lopez DO [Primary Care Provider] - <Jesus Villavicencio - Last Filed: 09/19/18 16:10> Hospitalist Progress Note - Encounter Date of Encounter: 09/19/18 Internal Medicine: Result - Labs CBC & Chem 7: 09/19/18 04:56 09/17/18 05:24 Labs: Short CBC 09/19/18 Range/Units 04:56 WBC 13.3 H (4.3-11.1) K/mcL Hgb 11.4 L (11.5-15.4) g/dL Hct 36.5 (35.3-44.9) % Plt Count 339 (140-400) K/mcL Neutrophils # 7.1 (1.6-8.9) K/mcL - ABG Interpretation ABG results: PT/INR, D-dimer PT 13.6 Seconds (9.4-12.1) H 09/17/18 05:24 - Attending Attestation Patient seen and examined independently, including review of objective data including labs and imaging. I agree with plan of care as documented above by the medical student with the following comments: Siomara Menjivar had a lobectomy 1 month ago and now has pleural effusion requiring chest tube placement. Pain is tolerable for patient on current Percocet. Does state that she is having insomnia and would like home benadryl. And is hopeful to get chest tube out in next 1-2 days. O Vitals reviewed, all wnl. Chest tube output is ~100 in last 24h. CXR from 09/18 with properly placed chest tube, decrease effusion from admission A/P Pleural effusion: CTSurg following, plan to repeat CXR in AM and if output remains low and effusion is improved, will consider pulling tube. Pain control with percocet Add home benadryl <Roel Velez - Last Filed: 09/19/18 09:07> (3) COPD (chronic obstructive pulmonary disease) Qualifiers: COPD type: unspecified COPD Qualified Code(s): J44.9 - Chronic obstructive pulmonary disease, unspecified (4) Congestive heart failure Qualifiers: Heart failure type: unspecified Heart failure chronicity: chronic Qualified Code(s): I50.9 - Heart failure, unspecified
--- NOTE | 2018-09-19 08:51 | Cardiothoracic Progress Note ---
Date of Encounter: 09/19/18 Time of Encounter: 08:50 - Assessment and plan (1) Hemothorax on right Current Visit: Yes Status: Acute The assessment and plan as outlined above was discussed with the patient and/or family members who expressed understanding and agreement. All questions were answered. current chest xray good. continue chest tube to suction. remove chest tube tomorrow after chest xray . - Subjective Interval history: anxiouis to have chest tube removed Oxgyen Flow Rate Oxygen Flow Rate (LPM) 2 Clinical Data, last 8 Hours Output, Urine Amount 500 Weight 09/17/18 09/18/18 09/19/18 23:59 23:59 23:59 Weight 117 kg 116.7 kg - Physical Examination HEENT: Atraumatic, Normocephaly Cardiac: Reg Rate and Rhythm, Normal S1 and S2 Incision: No signs of infection, Dry/intact dressing Chest tubes: Minimal drainage, Other Lungs: Other (end expiratory wheezin g) Neuro: Alert and responsive, Cranial nerves intact - Labs 09/19/18 04:56 09/17/18 05:24 Lab Results, Last 24 hours 09/19/18 04:56 WBC 13.3 H Hgb 11.4 L Hct 36.5 Plt Count 339 Consult Discharge Plan - Plan Referrals: Paco Lopez DO [Primary Care Provider] -
[2018-09-19] MEDS: Gabapentin 300 MG CAPSULE PO SCH ×3 (09:10→15:18)
[2018-09-19] MEDS: Nystatin SUSP 5 ML UD.LIQ PO SCH ×4 (09:11→22:05)
[2018-09-19] MEDS: Budesonide/Formoterol 80/4.5 MDI IH SCH ×2 (10:26→21:10)
[2018-09-19] MEDS: Benzonatate 100 MG CAPSULE PO PRN (13:53)
[2018-09-20] MEDS: Gabapentin 300 MG CAPSULE PO SCH ×2 (01:51→07:43)
[2018-09-20] MEDS: *HR* OxyCODONE/APAP 5/325 TABLET PO PRN ×2 (05:49→11:40)
[2018-09-20] MEDS: Ondansetron 4 MG/2 ML VIAL IVP PRN ×2 (05:52→14:08)
[2018-09-20 06:14] LABS: Basophils # 0.1 K/mcL (0.0-0.2); Basophils % 0.5 %; Eosinophils # 0.4 K/mcL (0.0-0.6); Eosinophils % 3.3 %; Hematocrit 35.6 % (35.3-44.9); Hemoglobin 11.2 g/dL (11.5-15.4); Immature Granulocytes % 0.6 % (0-4); Lymphocytes # 4.6 K/mcL (0.6-4.6); Lymphocytes % 38.7 %; Mean Corpuscular HGB Conc 31.5 g/dL (31.6-35.5); Mean Corpuscular Hemoglobin 27.9 pg (28.0-33.3); Mean Corpuscular Volume 88.8 fL (83.0-100.0); Mean Platelet Volume 9.5 fL (9.4-12.4); Monocytes # 0.9 K/mcL (0.0-1.3); Monocytes % 7.7 %; Neutrophils # 5.9 K/mcL (1.6-8.9); Platelet Count 351 K/mcL (140-400); Red Blood Count 4.01 M/mcL (3.82-4.97); Red Cell Distribution Width 13.9 % (11.5-14.5); Segmented Neutrophils % 49.2 %
[2018-09-20] MEDS: Nystatin SUSP 5 ML UD.LIQ PO SCH ×2 (07:44→11:20)
[2018-09-20] MEDS: Benzonatate 100 MG CAPSULE PO PRN (07:46)
[2018-09-20] MEDS: Budesonide/Formoterol 80/4.5 MDI IH SCH (08:11)
[2018-09-20] MEDS ORDERED: Benzonatate 100 MG CAPSULE PO PRN (11:52)
[2018-09-20] MEDS ORDERED: MOM Conc 10 ML UD.LIQ PO ONE (11:53)
--- NOTE | 2018-09-20 12:00 | Cardiothoracic Progress Note ---
Date of Encounter: 09/20/18 Time of Encounter: 11:58 - Assessment and plan (1) Hemothorax on right Current Visit: Yes Status: Acute The right hemothorax has improved significantly chest tube drainage. The chest tube output remains minimal and there is no air leak. The chest tube was removed. The patient may be discharged home at the hospitalist's discretion. She should see Dr. Gonzalez in the office in 2 weeks with a previsit chest x-ray. The assessment and plan as outlined above was discussed with the patient and/or family members who expressed understanding and agreement. All questions were answered. - Subjective Interval history: The patient remained hemodynamically stable overnight. She is resting comfortably in her hospital bed. She has no respiratory complaints. Vital Signs, Last 4 Hours Temp Pulse Resp BP Pulse Ox 09/20/18 10:25 98.2 F 72 16 116/75 94 09/20/18 08:14 16 95 Oxgyen Flow Rate Oxygen Flow Rate (LPM) 2 Clinical Data, last 8 Hours Output, Chest Tube Drainage 0 Amount [Right Lateral Chest #1 ] Weight 09/18/18 09/19/18 09/20/18 23:59 23:59 23:59 Weight 116.7 kg 117.4 kg - Physical Examination General: Conversant, No Apparent Distress Neck: No JVD, Normal carotid pulses Cardiac: Reg Rate and Rhythm, Normal S1 and S2, No Murmur Incision: No signs of infection, Dry/intact dressing Chest tubes: Minimal drainage, Other (No air leak) Lungs: Normal Breath Sounds, No Wheeze, Rales, Rhonchi Neuro: Alert and responsive, No focal deficits noted Vascular: Normal capillary refill Musculoskeletal: No Chest Wall Tenderness Extremities: No Clubbing, No Cyanosis, No Edema - Labs 09/20/18 05:36 09/17/18 05:24 Lab Results, Last 24 hours 09/20/18 05:36 WBC 12.0 H Hgb 11.2 L Hct 35.6 Plt Count 351 Consult Discharge Plan - Plan Referrals: Paco Lopez DO [Primary Care Provider] -
--- NOTE | 2018-09-20 13:45 | Internal Med Progress Note ---
Hospitalist Progress Note - Encounter Date of Encounter: 09/20/18 Time of Encounter: 09:00 - Subjective Interval History: Patient states her cough and wheezing has become more difficult since yesterday. Today, the patient is concerned of worsening sternal pain and the in ability to have a bowel movement. Patient complained of a headache last night but did not inform the nursing staff. She denied any changes in vision or dizzieness. She denied palpitations, edema, or deep chest pain. She admits to worsening SOB, cough, and wheezing. Shed denied any nausea and vomiting but admits to constipation and a decrease appetite. Also of note, the chest tube was charted that it removed 450 ml of fluid yesterday, upon inspection there had been a 50 ml collection of fluid overnight, from 400ml - 450mls. - Exam Vitals: Temp Pulse Resp BP Pulse Ox 98.2 F 72 16 116/75 94 09/20/18 10:25 09/20/18 10:25 09/20/18 10:25 09/20/18 10:25 09/20/18 10:25 Exam: GEN: AA&O x3, NAD, WDWN Cardiac: RRR, no murmurs, no rubs, peripheral pulses intact, no extremeity edema Lungs: Wheezing b/l, + cough, GI: BSx4, tender to palpation in RUQ, soft abdomen, no fluid wave Wound: Dressing dry clean and intact, no drainage, no crepitus Oral: Normal mucus membranes, white-yellow lesion on tongue, no satellite lesions I & O 09/16/18 18:30 thru 09/20/18 13:42 Intake Total 4640 Output Total 5630 Balance -990 Weight 117.4 kg Intake: IV Fluids 2000 0.9 % Sodium Chloride 1,000 ML 2000 @ 75 mls/hr IVC .[id number] ALEISHA Rx #:[id number] Oral 2640 Output: Urine 4730 Wound Drainage 0 Right Back 0 Chest Tube Drainage 900 Right Lateral Chest #1 900 Other: Meal Lunch Percent of Meal Consumed 100% Blood Glucose* 110 - Assessment and Plan (1) Rib pain on right side Current Visit: Yes Status: Acute Assessment and Plan: Patient complains of rib pain during forced exhalation and when coughing. Continue Tessalon 100 mg PO TID PRN for cough suppression, Continue Percocet 5- 325 mg 1 tab PO Q6HR PRN Likely rib sublixation due to chronic cough secondary to pleural effusion, COPD. Patient had right upper lobectomy 1 month ago (2) Pleural effusion, not elsewhere classified Current Visit: Yes Status: Acute Assessment and Plan: Chest x-ray post chest tube placement: Decrease in right pleural fluid volume. Left lung was clear. No pneumonthorax, no hydropneumothorax Chest tube collected 450 ml of pleural fluid that was red in nature chest tube to be removed Pleural fluid analysis preliminary: shows an increase in WBC, culture showed no growth at 24 hrs. Continue to monitor for signs of infectious etiology (3) COPD (chronic obstructive pulmonary disease) Current Visit: Yes Status: Chronic Assessment and Plan: Patient has b/l wheezing and worsening cough at time of exam. O2 staturation at 94% room air. Low suspicion for exacerbation Continue home inhalers, continue tessalon 100 mg PO TID PRN (4) Congestive heart failure Current Visit: Yes Status: Acute Assessment and Plan: No evidence of acute exacerbation Continue home medications Promote lifestyle modifications. (5) HTN (hypertension) Current Visit: No Status: Chronic Assessment and Plan: Patient has a previous diagnosis of HTN, Does not currently take medication for HTN Vitals are stable (6) Thrush, oral Current Visit: Yes Status: Acute Assessment and Plan: Physical Exam: white-yellow lesion along the top of tongue, easily scraped away. Patient is asymptomatic. Continue oral nystatin 5 mg PO QID - Time Spent with Patient Total time spent is greater than 50% in coordination of care (as documented) at patient's floor/unit and/or counseling patient: less than 15 minutes Internal Medicine: Result - Labs CBC & Chem 7: 09/20/18 05:36 09/17/18 05:24 Labs: Short CBC 09/20/18 Range/Units 05:36 WBC 12.0 H (4.3-11.1) K/mcL Hgb 11.2 L (11.5-15.4) g/dL Hct 35.6 (35.3-44.9) % Plt Count 351 (140-400) K/mcL Neutrophils # 5.9 (1.6-8.9) K/mcL - ABG Interpretation ABG results: PT/INR, D-dimer PT 13.6 Seconds (9.4-12.1) H 09/17/18 05:24 - Impressions Impressions Chest X-Ray 09/20/18 08:00 IMPRESSION: Stable examination with right basilar chest tube and partially loculated right pleural collection. D/ / Rolo Brewster MD / Rolo Brewster MD Interpreting Provider: Rolo Brewster MD Consult Discharge Plan - Plan Referrals: Paco Lopez DO [Primary Care Provider] - (3) COPD (chronic obstructive pulmonary disease) Qualifiers: COPD type: unspecified COPD Qualified Code(s): J44.9 - Chronic obstructive pulmonary disease, unspecified (4) Congestive heart failure Qualifiers: Heart failure type: unspecified Heart failure chronicity: chronic Qualified Code(s): I50.9 - Heart failure, unspecified
[2018-09-20 14:13] VITALS: BP 126/74
--- NOTE | 2018-09-20 14:25 | Discharge Summary ---
<Jovon Mcclellan - Last Filed: 09/20/18 16:00> - NOTES TO OUTPATIENT PROVIDER Notes to Outpatient Provider: admitted for right chest pain found to have loculated effusion had chest tube for two days. Follow up with Ct surgery in 2 weeks. CXR ordered for follow up. Orders not resulted at time of discharge: Pending orders 09/17/18 13:45 Culture,Body Fluid [RM] Routine Date of Encounter: 09/20/18 Time of Encounter: 14:22 - Discharge Diagnosis (1) Pleural effusion, not elsewhere classified Priority: Primary Status: Resolved (2) Thrush, oral Priority: Secondary Status: Resolved (3) Morbid obesity with BMI of 40.0-44.9, adult Priority: Secondary Status: Chronic (4) HTN (hypertension) Priority: Secondary Status: Chronic Qualifiers: Hypertension type: essential hypertension Qualified Code(s): I10 - Essential (primary) hypertension (5) DVT prophylaxis Priority: Secondary Status: Acute (6) COPD (chronic obstructive pulmonary disease) Priority: Secondary Status: Chronic Qualifiers: COPD type: unspecified COPD Qualified Code(s): J44.9 - Chronic obstructive pulmonary disease, unspecified (7) Congestive heart failure Priority: Secondary Status: Chronic Qualifiers: Heart failure type: unspecified Heart failure chronicity: chronic Qualified Code(s): I50.9 - Heart failure, unspecified (8) S/P lobectomy of lung Priority: Secondary Status: Chronic Hospital course: Patient, 57 yo female presented to the ED with SOB, dyspnea, and right rib pain secondary to chronic cough 4 days ago. She has a past medical history of CHF, COPD, HTN, PAD, a cholecystectomy and MAX/BSO. 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 In the ED lab showed a chronic leukocytosis. Chest x-ray showed pleural fluid, possible atelectasis and possible underlying pneumonia. CT showed pleural fluid in the right lung cavity and atelectasis and ruled out pneumonia. Cardiothoracic surgery was consulted who recommended chest tube. IR was consulted for a CT guided right chest tube placement. Patient had chest tube in place for 36 hours with drainaged of 1.5L of pleural fluid total. Patient had possible oral thrush on the patients tongue and she was started on oral nystat in 5 mg PO QID. The pleural fluid preliminary analysis showed an increase in WBC and negative culture growth. Chest tube was removed today. Patient did not have any complications. Patient should follow-up with Dr. Gonzalez outpatient in 2 weeks. Patient is to get a chest x-ray prior to follow-up. Discharge discussed with: patient - Time Spent with Patient Total time spent providing and/or coordinating discharge services: - Discharge Medications Prescriptions: New OxyCODONE/APAP 5/325 [Percocet 5/325 MG] 1 each PO Q4HR PRN 2 Days #8 tablet PRN Reason: Pain Continue Fluticasone/Vilanterol [Breo Ellipta 100-25 Mcg INH] 1 puff IH DAILY Promethazine [Phenergan] 25 mg PO Q6H PRN PRN Reason: Nausea Omeprazole [PriLOSEC] 40 mg PO DAILY Gabapentin [Neurontin] 300 mg PO Q8H DiphenhydraMINE [Benadryl] 25 mg PO HS Albuterol Sulfate [Ventolin Hfa] 2 puff IH Q6H PRN PRN Reason: Shortness Of Breath Home Medications: Fluticasone/Vilanterol [Breo Ellipta 100-25 Mcg INH] 1 puff IH DAILY 08/01/18 [History] Albuterol Sulfate [Ventolin Hfa] 2 puff IH Q6H PRN 09/18/18 [History] DiphenhydraMINE [Benadryl] 25 mg PO HS 09/18/18 [History] Gabapentin [Neurontin] 300 mg PO Q8H 09/18/18 [History] Omeprazole [PriLOSEC] 40 mg PO DAILY 09/18/18 [History] Promethazine [Phenergan] 25 mg PO Q6H PRN 09/18/18 [History] OxyCODONE/APAP 5/325 [Percocet 5/325 MG] 1 each PO Q4HR PRN 2 Days #8 tablet 09/20/18 [Rx] Allergies/Adverse Reactions: Allergy/AdvReac Type Severity Reaction Status Date / Time clarithromycin [From Biaxin] Allergy See Verified 08/16/18 14:40 Comments Penicillins Allergy Nausea,VOMI Verified 08/16/18 14:40 TING acetaminophen [From Percocet] AdvReac NAUSEA, Verified 08/16/18 14:40 VOMITING doxycycline AdvReac NAUSEA, Verified 08/16/18 14:40 VOMITING oxycodone [From Percocet] AdvReac NAUSEA, Verified 08/16/18 14:40 VOMITING propoxyphene AdvReac Nausea Verified 08/16/18 14:40 [From Darvocet-N] Sulfa (Sulfonamide AdvReac Nausea Verified 08/16/18 14:40 Antibiotics) tramadol [From Ultram] AdvReac Fever Verified 08/16/18 14:40 Date of admission: 09/17/18 01:08 Primary care physician: Paco Lopez DO Consults: 09/16/18 21:20 Consult to Cardiothoracic Surgery [CONS] Stat Consulting Provider: [facility] [place] Reason for Consult: subcutaneous fluid from pleural cavity following RUL lobectomy Time Notified: 21:21 Call Completed: Yes Discharging clinician: Jovon Mcclellan Anticipated date of discharge: 09/20/18 - Constitutional Vitals: Temp Pulse Resp BP Pulse Ox 98.1 F 76 16 126/74 96 09/20/18 14:10 09/20/18 14:10 09/20/18 14:10 09/20/18 14:10 09/20/18 14:10 Exam: General: pleasant, without distress HEENT: Head atraumatic, normocephalic, EOMI, PERRL, absent ear discharge or trauma, Moist Mucous Membranes, uvula midline Neck: nontender to palpation, absent lymphadenopathy, Cardiovascualr: regular rate and regular rhythm with no murmur, absent gallops or rubs, absent pedal edema, radial pulses 2 out of 4 Lungs: b/l wheezing not in respiratory distress. right chest wall incision intact without drainage. Abdomen: Soft nontender, nondistended positive bowel sounds, Skin: warm and dry, absent rash MSK: absent clubbing, cyanosis, joints without swelling Neuro: Cranial nerves II through XII intact, UE and LE sensation intact UE and LE strength 5/5, alert oriented 3, Psych: good insight and judgment - Patient Status Disposition: Home, Self-Care Condition: Good Functional capacity at discharge: independent ambulation Overall status at discharge: patient is progressing back to baseline - Ambulatory Orders Ambulatory Orders: XR chest 1V [XR] Time Frame: 10/03/18, Facility: [facility], Location: Radiology - Discharge Instructions Instructions: Oxycodone/Acetaminophen (By mouth), Heart Failure (DC), Pleural Effusion (DC) Follow Up With: Paco Lopez DO [Primary Care Provider] - Lawrence Gonzalez MD [Partnered Physician] - 10/04/18 (f/u hospital loculated effusion, chest tube) <Jesus Villavicencio - Last Filed: 09/20/18 18:05> Orders not resulted at time of discharge: Pending orders 09/17/18 13:45 Culture,Body Fluid [RM] Routine Date of Encounter: 09/20/18 - Time Spent with Patient Total time spent providing and/or coordinating discharge services: Date of admission: 09/17/18 01:08 Primary care physician: Paco Lopez DO Consults: 09/16/18 21:20 Consult to Cardiothoracic Surgery [CONS] Stat Consulting Provider: [facility] [place] Reason for Consult: subcutaneous fluid from pleural cavity following RUL lobectomy Time Notified: 21:21 Call Completed: Yes - Attending Attestation Patient seen and examined. I agree with the discharge plan as documented above by the resident. In summary, Monika Menjivar is a 57 F w hx COPD, HTN, HFpEF, and pulmonary histoplasmosis s/p lobectomy on 08/16/2018 who presented at time of admission with R-sided chest pain, found on CT to have large posterolateral effusion, requiring CT surgery to place temporary chest tube for drainage. Patient kept inpatient for tube management; over 3 days, decreased output and no recurrence of effusion and thus chest tube removed, cleared by CT surg for discharge and instructed on appropriate follow up with Dr Gonzalez in 1-2 weeks.
== END 2018-09-20 16:59 | disposition home or self-care (01) | DRG 194 ==
LOC: 2ANU 18:30 → EMEROOARM 18:30 → 2ANU 09-17 00:39 → 3ANU 09-17 01:07 → SUATTDRO 09-17 01:08
PROVIDERS: ADMIT Internal Medicine; ATTEND Internal Medicine
PROC: IRDRAIN (2018-09-17 13:00)